=== PATIENT | male | born 1975 | race Hispanic/Latino ===

== ENCOUNTER 2018-01-30 05:39 | Day surgery (SDC) | payer BC ==
[2018-01-26 13:24] LABS: Basophils % (Auto) 0.7 % (0.0-1.8); Eosinophils # (Auto) 0.1 K/mm3 (0.0-0.4); Eosinophils % (Auto) 1.3 % (0.0-4.3); Hematocrit 43.4 % (35.5-45.6); Hemoglobin 14.5 gm/dl (11.8-15.2); Lymphocytes # (Auto) 2.8 K/mm3 (1.2-5.4); Lymphocytes % (Auto) 39.5 % (13.4-35.0); Mean Corpuscular HGB Conc 33 % (32-34); Mean Corpuscular Volume 88 fl (84-94); Monocytes # (Auto) 0.6 K/mm3 (0.0-0.8); Monocytes % (Auto) 8.9 % (0.0-7.3); Platelet Count 336 K/mm3 (140-440); Red Blood Count 4.96 M/mm3 (3.65-5.03); Red Cell Distribution Width 13.4 % (13.2-15.2)
[2018-01-26 13:35] LABS: INR 0.9 (0.87-1.13)
[2018-01-26 13:42] LABS: Alanine Aminotransferase 22 units/L (7-56); Albumin 4.4 g/dL (3.9-5); BUN/Creatinine Ratio 10; Blood Urea Nitrogen 7 mg/dL (9-20); Calcium 9.4 mg/dL (8.4-10.2); Hemolysis Index 12
[~2018-01-30 05:39] MED LIST: MARCAINE 0.5% INFILTRATI ONE
[2018-01-30] MEDS ORDERED: CELESTONE SOLUSPAN IM ONE ×2 (06:36→10:34)
[2018-01-30] MEDS ORDERED: MARCAINE 0.5% INFILTRATI ONE ×2 (06:36→10:40)
[2018-01-30] MEDS ORDERED: XYLOCAINE 1%/ EPI 1:100,000 INFILTRATI ONE ×3 (06:37→08:59)
[2018-01-30] MEDS ORDERED: BACITRACIN ONE (06:37)
[2018-01-30] MEDS ORDERED: NACL ONE (06:37)
[2018-01-30] MEDS ORDERED: ANTIBIOTIC OINT TP ONE (06:39)
[2018-01-30] MEDS ORDERED: VERSED ONE (06:42)
[2018-01-30] MEDS ORDERED: LACTATED RINGERS 1,000 ML ONE (06:42)
[2018-01-30] MEDS ORDERED: NEURONTIN ONE (06:43)
[2018-01-30] MEDS ORDERED: PEPCID IV ONE (06:44)
--- NOTE | 2018-01-30 06:45 | Anesthesia Day of Surgery ---
Anesthesia Day of Surgery - Day of Surgery Patient Examined: Yes Patient H&P Reviewed: Yes Patient is NPO: Yes
[2018-01-30] MEDS ORDERED: ZOFRAN IV PRN (06:46)
[2018-01-30] MEDS ORDERED: DEMEROL IV PRN (06:46)
[2018-01-30] MEDS ORDERED: DILAUDID IV PRN (06:46)
--- NOTE | 2018-01-30 06:46 | Anesthesia Consultation ---
Anesthesia Consult and Med Hx Date of service: 01/30/18 - Airway ROM Head & Neck: Adequate Mental/Hyoid Distance: Adequate Mallampati Class: Class II Intubation Access Assessment: Probably Good - Pulmonary Exam CTA: Yes - Cardiac Exam Cardiac Exam: RRR - Pre-Operative Health Status ASA Pre-Surgery Classification: ASA3 Proposed Anesthetic Plan: General (Chronic Pain, takes oxycotin 10 mg TID, amd morphine QD, hx of DM, tob use) - Pulmonary Hx Smoking: Yes (1/2 PPD X 15 YRS) Hx Sleep Apnea: No (DANIAL PRE SCREEN LOW RISK.) - Cardiovascular System Hx Hypertension: No - Central Nervous System Hx Back Pain: Yes (WITH LEFT HIP AND LEG PAIN) - Other Systems Hx Cancer: No
[2018-01-30] MEDS ORDERED: LACTATED RINGERS 1,000 ML IV SCH (07:00)
[2018-01-30] MEDS ORDERED: ANCEF/STERILE WATER 2 GM/20 ML IV NR (07:00)
[2018-01-30] MEDS ORDERED: METHYLENE BLUE ONE (07:17)
[2018-01-30] MEDS ORDERED: ANCEF ONE (07:17)
[2018-01-30] MEDS ORDERED: XYLOCAINE MPF 2% ONE (07:19)
[2018-01-30] MEDS ORDERED: DIPRIVAN 10 MG/ML IV ONE (07:19)
[2018-01-30] MEDS ORDERED: SUBLIMAZE ONE (07:19)
[2018-01-30] MEDS ORDERED: QUELICIN ONE (07:19)
[2018-01-30] MEDS ORDERED: HumuLIN R ONE ×2 (07:33→07:35)
[2018-01-30] MEDS ORDERED: KETALAR ONE (08:04)
[2018-01-30] MEDS ORDERED: NACL 0.9% 1000 ML 1,000 ML ONE (09:06)
[2018-01-30] MEDS ORDERED: METHYLENE BLUE IRRIGATION ONE (09:15)
[2018-01-30] MEDS ORDERED: OMNIPAQUE (240 MG) IRRIGATION ONE (09:15)
[2018-01-30] MEDS ORDERED: ANCEF IV ONE (09:15)
[2018-01-30] MEDS ORDERED: TORADOL ONE (11:34)
[2018-01-30] MEDS ORDERED: REGLAN IV PRN (11:57)
[2018-01-30] MEDS ORDERED: PHENERGAN PR PRN (11:58)
[2018-01-30] MEDS ORDERED: PHENERGAN PR ONE (12:05)
[2018-01-30 12:55] VITALS: BP 122/59
--- NOTE | 2018-01-30 15:34 | Post Anesthesia Evaluation ---
- Post Anesthesia Evaluation Patient Participated: Yes Airway Patent: Yes Stable Respiratory Function: Yes Nausea/Vomiting: No Temp > 96.8F: Yes Pain Manageable: Yes Adequeate Hydration: Yes Anesthesia Complications: No
--- NOTE | 2018-02-05 07:45 | Fluoroscopy Report ---
FLUOROSCOPY MYELOGRAM LUMBOSACRAL History: Lumbar dissection, L4-5 discogram, myelogram, laminectomy. Findings: Fluoroscopy was provided by radiology during a lumbar dissection procedure by Dr. Higginbotham. 16 fluoroscopic images were saved. The images demonstrate intrathecal contrast in the lumbar sacral region. Discogram was performed at L4-5. Please correlate with the procedural report as needed. Impression: Successful lumbar myelogram and discogram at L4-5.
--- NOTE | 2018-02-21 10:51 | Operative Report ---
Operative Report Operative Report: Date of Service: 01/30/2018. PREOPERATIVE DIAGNOSIS: 1. Chronic left L5 radiculopathy. 2. Chronic axial low back pain. 3. Central and left L4-L5 foraminal disc herniation. 4. Lumbar spinal stenosis at L4L5 without neurogenic claudication. POSTOPERATIVE DIAGNOSIS: 1. Chronic left L5 radiculopathy. 2. Chronic axial low back pain. 3. Central and left L4-L5 foraminal disc herniation. 4. Lumbar spinal stenosis at L4L5 without neurogenic claudication. PROCEDURE PERFORMED: 1. Left L4-L5 foraminotomy with discectomy and decompression of left L4 and L5 nerve roots. 2. Lumbar myelography. 3. Lumbar discography L4-L5. 4. Left L4-L5 transforaminal epidural steroid injection. SURGEON: LUTHER ECHEVERRIA M.D. ANESTHESIA: GETA, 1% lidocaine local/0.5% bupivicaine. NEUROMONITORING: EMG and SSEP neuromonitoring of bilateral lower extremities was performed throughout the procedure. No abnormal activity was observed during the procedure. EBL: 15 mL DESCRIPTION OF PROCEDURE: Following informed consent, the patient was brought to the operative suite and placed on the table a prone position. General endotracheal anesthesia was delivered without complication. The back was sterilely prepped and draped in routine fashion. Patient received 2 g cefazolin intravenously for antimicrobial prophylaxis. A C-arm was brought into place with attention turned to the lumbar spine. Attention was turned toward the left neural foramen at the L3-4 level. The 25-gauge 5 inch spinal needle was directed into the central spinal canal L3-L4. Lumbar myelography was performed and 10 mL of Omnipaque 240 was injected 5 opacifying the ventral aspect of the subarachnoid space with identification of moderate/moderate large broad-based central and left-sided disc herniation at L4-5 with amputation of the left L5 nerve root sleeve. Moderate narrowing of the central spinal canal also noted. Next, lumbar discography was performed and a 22-gauge 5 inch spinal needle was directed into the central aspect of the L4-L5 disc using a right posterior lateral approach. Discography was performed with injection of 5 mL Omnipaque 240 mixed with methylene blue and cefazolin. There was extension contrast posteriorly into the disc space, extending into a broad-based central and left- sided disc herniation. Additional extravasation into the central cholesterol space was noted consistent with full-thickness annular tear. Following injection of 1% lidocaine with epinephrine, a 1 cm transverse incision was made overlying the left L4-5 neural foramen. Using serial dilators, a tract was created to the left L4-5 neural foramen. A tubular retractor was anchored. The superior articular process of L5 and the endplate of L4 and soft tissues were identified under direct visualization. This was followed by placement of a endoscope and the tubular retractor. Bipolar electrocautery was utilized for hemostasis. The soft tissue was dissected from superior reticular process of L5. The foraminal ligament was partially resected. A moderately large disc herniation was then encountered and was resected in piecemeal fashion with multiple collagenized fragments. An large annular defect was identified and the defect was cauterized for partial closure well as cauterization along the posterior annulus for neuromodulation.. Foraminotomy was then performed in standard fashion. Following additional resection of the residual foraminal ligament. Using a high-speed articulating drill with a tristen-tip rita, the superior and ventral aspect of the L5 superior articular process was removed. Osteophyte of the inferior L4 endplate was partially resected. Utilizing bipolar electrocautery for ablation and a endoscopic 45 Kerrison, the ligamentum flavum was resected exposing the descending L5 nerve root sleeve. The nerve root appeared to be adequately decompressed. The ventral epidural space was then decompressed with extension of the discectomy to involve the central aspect of the disc herniation. Once foraminotomy appeared to be satisfactory with decompression of the foramen and central spinal canal. The epidural space was then reinspected and no additional disc fragments were identified. The instrumentation was removed. The incision was closed with interrupted 3-0 Vicryl sutures and skin edges were approximated with 3-0 Prolene interrupted sutures. A 22-gauge 5 inch spinal needle was then directed into the left L4-5 neural foramen and transforaminal epidural injection was performed after injection of Omnipaque 240 demonstrated satisfactory contrast flow without subarachnoid space opacification of vascular uptake. 12 mg of betamethasone mixed with 2.0 mL of 0.5% bupivacaine was injected. Sterile dressing was applied. The patient was turned onto the gurney, extubated and taken to the PACU in stable cardiopulmonary neurologic condition. CONDITION AT DISCHARGE: Good. FOLLOW-UP: In office in 7 days for wound check.
== END 2018-01-30 13:35 | disposition home or self-care (01) ==
LOC: OR 05:39
PROVIDERS: ATTEND Radiology Diagnostic Radiology
DX: M51.16 Intervertebral disc disorders with radiculopathy, lumbar region (principal); M48.062 Spinal stenosis, lumbar region with neurogenic claudication; G89.29 Other chronic pain; E11.9 Type 2 diabetes mellitus without complications; Z79.4 Long term (current) use of insulin; Z79.01 Long term (current) use of anticoagulants; Z79.899 Other long term (current) drug therapy
CPT/HCPCS: 36415; 62304; 63030; 64483; 80053; 82962; 85025; 85610; 85730; 86850; 86900; 86901; 88304; J0330; J0690; J0702; J1885; J2250; J2704; J2765; J3010; J7030; J7120; Q9966; Q9968; J1815